=== PATIENT | female | born 1995 | race Two or more races ===

== ENCOUNTER → 2024-02-14 | Emergency (ER) | payer OTHER ==
[~2024-02-14] VITALS: Ht 149.9 cm; Wt 51.3 kg
[~2024-02-14] MED LIST: DOLOGESIC-DF 51 EACH PO; PEPCID AC20 MG PO
[2024-02-14 20:58] VITALS: BP 88/71; O2SAT 98
[2024-02-14 21:45] LABS: HEMATOCRIT 33.8 % (36.0-45.00); MEAN CORPUSCULAR HEMOGLOBIN 22.5 pg (27.00-32.0); MEAN CORPUSCULAR HGB CONC 32.4 g/dl (32.0-36.0); PLATELET COUNT 335 K/uL (150-450); RED BLOOD COUNT 4.87 M/uL (4.00-6.00); RED CELL DISTRIBUTION WIDTH 17.7 % (11.5-14.5)
[2024-02-14 21:55] LABS: MEAN CELL VOLUME 69.4 fL (80.00-100.00)
[2024-02-14 22:11] LABS: ALBUMIN 3.8 gm/dL (3.4-5.0); ALKALINE PHOSPHATASE 53 U/L (50-136); ALT/SGPT 14 U/L (12-78); ANION GAP 10 (10.0-20.0); AST/SGOT 9 U/L (15-37); BLOOD UREA NITROGEN 11 mg/dL (7-18); BUN CREA RATIO 15 (7.0-25.0); CALCIUM 9.2 mg/dL (8.5-10.1); CARBON DIOXIDE 28 mEq/L (21-32); CHLORIDE 106 mmol/L (98-107); CREATININE SERUM 0.73 mg/dL (0.55-1.02); GFR 95.63; GLOBULINA 4.1 G/DL (2.4-3.5); GLUCOSE FASTING 94 mg/dL (65-100); OSMOLALITY SERUM 279 MOSM/KG (275-295); POTASSIUM 3.67 mEq/L (3.5-5.1); SODIUM 140 mmol/L (136-145); TOTAL PROTEIN 7.9 gm/dL (6.4-8.2)
[2024-02-14 22:14] LABS: PH,URINE 6.5 (5.0-8.0); URINE APPEARANCE Clear; URINE BILIRRUBIN Negative (NEGATIVE); URINE BLOOD Negative; URINE COLOR Yellow; URINE GLUCOSE Negative (NEGATIVE); URINE KETONE Negative (NEGATIVE); URINE LEUKOCYTE Negative; URINE NITRATE Negative; URINE PROTEIN Negative (NEGATIVE); URINE UROBILINOGEN 0.2 E.U./dl
[2024-02-14 22:17] LABS: URINE BACTERIA 73.4 uL (0.0-1933); URINE EPITHELIAL CELLS 10.1 uL (0.0-38.8); URINE WBC 5.5 uL (0.0-23.2)
[2024-02-14 22:17] LABS: HCG QUANTITATIVE < 1 mUI/mL (1-3)
== END | disposition home or self-care (01) ==
LOC: ER 20:41
PROVIDERS: General Practice
DX: N93.9 Abnormal uterine and vaginal bleeding, unspecified (principal); N88.8 Other specified noninflammatory disorders of cervix uteri